=== PATIENT | male | born 1950 | race Caucasian/White ===

== ENCOUNTER 2016-07-31 20:44 | Inpatient (IN) | payer BC, OTHER ==
[2016-07-31 20:57] VITALS: BMI 27.6
--- NOTE | 2016-07-31 22:00 | PDOC ---
History of Present Illness - General Chief Complaint: Respiratory Stated Complaint: COUGH Time Seen by Provider: 07/31/16 21:21 History Source: Patient Exam Limitations: No Limitations - History of Present Illness Initial Comments: 07/31/16 21:59 Chief complaint: Productive worsening cough 2 weeks with shortness of breath when coughing and with exertion History of present illness: Patient is a 66-year-old male with a history of non- insulin-dependent diabetes, hypertension, hyperlipidemia, and renal calculi here today complaining of a productive cough with yellowish phlegm 2 weeks blood-tinged times last 4 days with shortness of breath with exertion and wheezing intermittently. Patient also reports left lateral chest discomfort when coughing. Patient denies any vomiting or diarrhea. She denies any recent travel or any sick contacts. Patient denies any nasal congestion or sore throat. He reports feeling slightly nauseous when eating for the last 2 weeks and when lying down and coughing. Denies any night sweats or contact with anyone with TB. Patient is unsure whether or not he has lost weight thinks he might of lost, he does not have a scale. Denies ever having BCG vaccine was born in this country Social HX: does not drink, 56 yr 1 pkg daily smokers PMHX: He reports being PPD +1979 when in the [employer] he does not remember ever having INH or B6 treatment he denies ever having another PPD. History of ztd-wcpsjfn-wrswimeor diabetes, hypertension, hyperlipidemia Surgical HX: rt. knee 07/31/16 23:12 07/31/16 23:20 07/31/16 23:21 07/31/16 23:25 Timing/Duration: getting worse (for 2 weeks ) Severity: moderate (left lateral chest pain when coughing ) Associated Symptoms: reports: chest pain (left lateral when coughing ), cough ( yellowish phelgm x 2 weeks ), shortness of breath (intermittently with wheeze) Past History - Past Medical History Allergies/Adverse Reactions: Allergies Allergy/AdvReac Type Severity Reaction Status Date / Time No Known Allergies Allergy Verified 07/31/16 20:54 Home Medications: Ambulatory Orders Atorvastatin Ca [Lipitor] 20 mg PO HS #30 tablet 12/27/14 Metformin HCl 500 mg PO BID #60 tablet 12/27/14 Losartan Potassium 50 mg PO ASDIR 07/31/16 Sitagliptin Phosphate [Januvia -] 100 mg PO ONCE 07/31/16 Diabetes: Yes HTN: Yes Hypercholesterolemia: Yes Kidney Stones: Yes Suicide Attempt (Hx): No - Psycho/Social/Smoking Cessation Hx Anxiety: No Suicidal Ideation: No Smoking History: Current every day smoker Have you smoked in the past 12 months: Yes Number of Cigarettes Smoked Daily: 20 Information on smoking cessation initiated: Yes 'Breaking Loose' booklet given: 07/31/16 Hx Alcohol Use: No Drug/Substance Use Hx: No Substance Use Type: None Review of Systems - Review of Systems Able to Perform ROS?: Yes Constitutional: No: Symptoms Reported HEENTM: No: Symptoms Reported Respiratory: Yes: SOB with Exertion, Wheezing, Productive cough (yellowish X 2 weeks ) Cardiac (ROS): Yes: Chest Pain (left lateral chest when coughing ) ABD/GI: No: Symptoms Reported : No: Symptoms Reported Musculoskeletal: No: Symptoms Reported Integumentary: No: Symptoms Reported Neurological: No: Symptoms reported *Physical Exam - Vital Signs Last Vital Signs Temp Pulse Resp BP Pulse Ox 97.9 F 98 H 18 151/84 99 07/31/16 20:54 07/31/16 20:54 07/31/16 20:54 07/31/16 20:54 07/31/16 20:54 - Physical Exam General Appearance: Yes: Appropriately Dressed HEENT: positive: Normal ENT Inspection Neck: negative: Lymphadenopathy (R), Lymphadenopathy (L) Respiratory/Chest: positive: Chest Tender (left lateral chest with cough ), Decreased Breath Sounds (b/l diffuse), Other (reassessment after 2nd duoneb rt. lung sounds improved CTA, left lower lung at base CTA, left mid to upper lobe decreased breath sounds). negative: Lungs Clear, Respiratory Distress, Accessory Muscle Use, Labored Respiration, Paradoxal Breathing, Crackles, Rales , Rhonchi, Stridor, Wheezing Cardiovascular: positive: Regular Rhythm, Regular Rate, S1, S2 Integumentary: positive: Normal Color Neurologic: positive: Alert, Normal Response, Responsive ED Treatment Course - LABORATORY CBC & Chemistry Diagram: 08/01/16 07:30 08/01/16 07:30 Medical Decision Making - Medical Decision Making 07/31/16 22:00 Patient is a 66-year-old male with a history of ayp-lmtorab-wlrjzifae diabetes, hypertension, hyperlipidemia, and renal calculi here today complaining of a productive cough with yellowish phlegm 2 weeks with shortness of breath with exertion and wheezing intermittently. Patient also reports left lateral chest discomfort when coughing. Patient denies any vomiting or diarrhea. He denies any recent travel or any sick contacts. Patient denies any nasal congestion or sore throat. He reports feeling slightly nauseous when eating for the last 2 weeks and when lying down and coughing. Denies any night sweats or contact with anyone with TB. Patient is unsure whether or not he has lost weight thinks he might of lost, he does not have a scale. questionable asthmatic bronchitis infiltrate left upper lobe Plan: DuoNeb 2 predisone 60 mg po now X-ray chest PA and lateral left upper lobe infiltrate no abnormality noted on Chest Xray 06/18/19 Chart nurse Ney and ELECTROTYPE MOLDER Dorinda Larson aware pt. to be transferred to main ED to be admitted to hospitalist, pt. is aware 07/31/16 22:55 07/31/16 23:21 08/01/16 23:38 *DC/Admit/Observation/Transfer Diagnosis at time of Disposition: Pneumonia involving left lung Qualifiers: Pneumonia type: due to unspecified organism Lung location: upper lobe of lung Qualified Code(s): J18.1 - Lobar pneumonia, unspecified organism - Referrals
[2016-07-31] MEDS ORDERED: predniSONE 20 MG TABLET (UD) PO ONE (22:01)
[2016-07-31] MEDS: ALBUTEROL SO4 2.5/IPRATROPIUM 0.5 INH SOL 3 ML VIAL.NEB. NEB SCH ×2 (22:08→22:29)
[2016-07-31] MEDS ORDERED: predniSONE 20 MG TABLET (UD) ONE (22:22)
[2016-07-31] MEDS ORDERED: ALBUTEROL SO4 2.5/IPRATROPIUM 0.5 INH SOL 3 ML VIAL.NEB. NEB ONE (22:25)
--- NOTE | 2016-08-01 00:04 | PDOC ---
*Physical Exam - Vital Signs Last Vital Signs Temp Pulse Resp BP Pulse Ox 97.9 F 98 H 18 151/84 99 07/31/16 20:54 07/31/16 20:54 07/31/16 20:54 07/31/16 20:54 07/31/16 20:54 - Physical Exam Comments: 08/01/16 00:01 Sign-out received from fast track provider Debbi. Pt interviewed and examined. Ancillary studies reviewed. 66 yo M with hx of NIDDM, HLD, HTN, and renal stones presented to [facility] with productive cough 2 weeks with SOB and intermittent wheezing. Large left upper lobe infiltrate seen on CXR. Patient was transferred to main ED for admission to hospital. ED Treatment Course - LABORATORY CBC & Chemistry Diagram: 08/01/16 00:40 08/01/16 00:40 - Medications Given in the ED: ED Medications Discontinued Medications Generic Name Dose Route Start Last Admin Trade Name Freq PRN Reason Stop Dose Admin Albuterol/Ipratropium 1 amp 07/31/16 22:00 07/31/16 22:29 Duoneb - NEB 07/31/16 22:16 1 amp Q15M YARED Administration Prednisone 60 mg 07/31/16 22:01 07/31/16 22:29 Deltasone - PO 07/31/16 22:02 60 mg ONCE ONE Administration *DC/Admit/Observation/Transfer Diagnosis at time of Disposition: Pneumonia involving left lung Qualifiers: Pneumonia type: due to unspecified organism Lung location: upper lobe of lung Qualified Code(s): J18.1 - Lobar pneumonia, unspecified organism - Discharge Dispostion Admit: Yes - Referrals Referrals: Milady Apple MD [Primary Care Provider] - - Patient Instructions - Post Discharge Activity
[2016-08-01 00:53] LABS: BASOPHIL 0.4 % (0-2.0); EOSINOPHIL 0.3 % (0-4.5); MCH 29.6 pg (25.7-33.7); MCHC 33.5 g/dl (32.0-35.9); MEAN CELL VOLUME 88.2 fl (80-96); MEAN PLT VOLUME 7.9 fl (7.5-11.1); NEUTROPHILS 87.1 % (42.8-82.8); PLATELET COUNT 225 K/MM3 (134-434); RDW 13.3 % (11.9-15.9); WHITE BLOOD COUNT 11.1 K/mm3 (4.0-10.0)
[2016-08-01 01:05] LABS: INR 1.31 (0.82-1.09); PROTHROMBIN TIME (PATIENT) 14.5 SEC (9.98-11.88)
[2016-08-01 01:16] LABS: ALBUMIN 3.3 g/dl (3.4-5.0); ANION GAP 12 (8-16); BILIRUBIN,TOTAL 0.7 mg/dL (0.2-1.0); CALCIUM 8.9 mg/dL (8.5-10.1); CO2 28 mmol/L (21-32); CREATININE 0.9 mg/dL (0.7-1.3); GLUCOSE,RANDOM 171 mg/dL (74-106); SGOT/AST 14 U/L (15-37); SGPT/ALT 15 U/L (12-78); TOT PROT 6.7 g/dl (6.4-8.2)
[2016-08-01 01:19] LABS: ALK PHOS 72 U/L (45-117); TROPONIN I < 0.02 ng/ml (0.00-0.05)
[2016-08-01] MEDS ORDERED: AZITHROMYCIN IVPB 500 MG in DEXTROSE 5%-WATER - 250 ML IVPB ONE (01:21)
[2016-08-01] MEDS ORDERED: cefTRIAXone 1 GM/50 ML BAG (PRE-DOCKED) IVPB ONE (01:21)
[2016-08-01] MEDS ORDERED: AZITHROMYCIN IVPB 250 ML IVPB ONE (01:27)
[2016-08-01] MEDS ORDERED: cefTRIAXone SODIUM 1 GM VIAL ONE (01:28)
[2016-08-01 01:31] LABS: URINE APPEARANCE CLEAR; URINE BILIRUBIN NEGATIVE (NEGATIVE); URINE BLOOD NEGATIVE (NEGATIVE); URINE COLOR YELLOW; URINE GLUCOSE (UA) NEGATIVE (NEGATIVE); URINE KETONE 1+ (NEGATIVE); URINE LEUK ESTERASE NEGATIVE (NEGATIVE); URINE NITRITE NEGATIVE (NEGATIVE); URINE UROBILINOGEN 2.0 E.U/dl E.U./dl (0.2-1.0)
[2016-08-01 01:36] LABS: URINE PROTEIN 1+ (NEGATIVE)
[2016-08-01 01:37] LABS: URINE BACTERIA RARE /hpf (NONE SEEN); URINE MUCUS RARE; URINE RBC 2 /hpf (0-3); URINE WBC 1 /hpf (3-5)
--- NOTE | 2016-08-01 02:08 | PN ---
<Didi Burnham - Last Filed: 08/01/16 04:29> Teaching Attending Note Name of Resident: Cassidy Hernández Problem List - Problems (1) Mass of upper lobe of left lung Code(s): R91.8 - OTHER NONSPECIFIC ABNORMAL FINDING OF LUNG FIELD (2) Pneumonia involving left lung Code(s): J18.9 - PNEUMONIA, UNSPECIFIED ORGANISM Qualifiers: Pneumonia type: due to unspecified organism Lung location: upper lobe of lung Qualified Code(s): J18.1 - Lobar pneumonia, unspecified organism (3) Diabetes Code(s): E11.9 - TYPE 2 DIABETES MELLITUS WITHOUT COMPLICATIONS <Lolis Bean - Last Filed: 08/01/16 04:40> Teaching Attending Note ATTENDING PHYSICIAN STATEMENT I saw and evaluated the patient. I reviewed the resident's note and discussed the case with the resident. I agree with the resident's findings and plan as documented. SUBJECTIVE: 66 yo M who presented to the ED with complains of productive cough with yellow sputum and blood tinged phlegm for the past 2 weeks associated with wheezing, dyspnea on exertion and pleuritic chest pain. Patient also complains of anorexia , nausea and unintentional weight loss. Patient history significant for chronic tobacco use since the age of 10. He denies any recent sick contacts, recent travel, night sweats or contact with anyone with TB. Patient also reports unexplained weight loss within the past month. PMHx: diabetes, hypertension, hyperlipidemia, and renal calculi PSHx: Jaw surgery and R knee surgery Social Hx: Tobacco smoker since the age of 10, denies alcohol or drug use. OBJECTIVE: Last Vital Signs Temp Pulse Resp BP Pulse Ox 97.9 F 98 H 18 151/84 99 07/31/16 20:54 07/31/16 20:54 07/31/16 20:54 07/31/16 20:54 07/31/16 20:54 GENERAL: Awake, alert, and fully oriented, in no acute distress HEENT: + R neck surgical scar. Atraumatic. PERRLA, EOMI. Moist mucosa. No JVD LUNGS: + Slight wheezing at L lower lobe otherwise clear. No distress, speaks full sentences. HEART: Regular rate and rhythm, normal S1 and S2, no murmurs, rubs or gallops, peripheral pulses normal and equal bilaterally. ABDOMEN: Soft, nontender, normoactive bowel sounds. No guarding, no rebound. No masses EXTREMITIES: Normal inspection, Normal range of motion, no edema. No clubbing or cyanosis. NEUROLOGICAL: Cranial nerves II through XII grossly intact. Normal speech, gait deferred. no focal sensorimotor deficits SKIN: Warm, Dry, normal turgor, no rashes or lesions noted. CBCD WBC 11.1 K/mm3 (4.0-10.0) H 08/01/16 00:40 RBC 4.69 M/mm3 (4.00-5.60) D 08/01/16 00:40 Hgb 13.9 GM/dL (11.7-16.9) D 08/01/16 00:40 Hct 41.4 % (35.4-49) D 08/01/16 00:40 MCV 88.2 fl (80-96) 08/01/16 00:40 MCHC 33.5 g/dl (32.0-35.9) 08/01/16 00:40 RDW 13.3 % (11.9-15.9) 08/01/16 00:40 Plt Count 225 K/MM3 (134-434) D 08/01/16 00:40 MPV 7.9 fl (7.5-11.1) D 08/01/16 00:40 CMP Sodium 141 mmol/L (136-145) 08/01/16 00:40 Potassium 4.2 mmol/L (3.5-5.1) 08/01/16 00:40 Chloride 101 mmol/L (98-107) 08/01/16 00:40 Carbon Dioxide 28 mmol/L (21-32) 08/01/16 00:40 Anion Gap 12 (8-16) 08/01/16 00:40 BUN 12 mg/dL (7-18) 08/01/16 00:40 Creatinine 0.9 mg/dL (0.7-1.3) 08/01/16 00:40 Creat Clearance w eGFR > 60 (>60) 08/01/16 00:40 Calcium 8.9 mg/dL (8.5-10.1) 08/01/16 00:40 Total Bilirubin 0.7 mg/dL (0.2-1.0) D 08/01/16 00:40 AST 14 U/L (15-37) L D 08/01/16 00:40 ALT 15 U/L (12-78) 08/01/16 00:40 Alkaline Phosphatase 72 U/L (45-117) D 08/01/16 00:40 Total Protein 6.7 g/dl (6.4-8.2) 08/01/16 00:40 Albumin 3.3 g/dl (3.4-5.0) L 08/01/16 00:40 Imaging: Chest Xray Impression- Heart size is normal. Dense left upper lobe infiltrate likely represents lobar pneumonia. No pleural effusion. Bones and soft tissues are normal. ASSESSMENT AND PLAN: Patient admitted under Observation 1.) PNA Ceftriaxone 1 g daily and Azithromycin 500 mg daily Nebulization Q6 PRN Tylenol PRN for fever Robitussin 10 ml Q6 hrs PRN for cough Ativan 2 mg IV push to be given right before CT of Chest w contrast 2.) Diabetes INSS Fingersticks HS Diabetic Diet 3.) HTN Continue home meds 4.)HLD Continue statin 5.)Tobacco dependence Nicotine patch 14 mg Counseling for risk of dependence and Lung CA Documentation prepared by Lolis Bean, acting as medical chief technician for Didi Burnham MD.
--- NOTE | 2016-08-01 02:17 | HP ---
CHIEF COMPLAINT: Cough, SOB x 2 weeks PCP: Dr. Milady Apple ([phone]) HISTORY OF PRESENT ILLNESS: Patient is a 66-year-old male presented to the ED with the chief complaints of Cough and shortness of breath x 2 weeks. A/c to the patient, he developed productive cough, with yellowish-whitish sputum, blood tinged on/off. Vigorous cough causing rib pain as per the patient. Cough is associated with shortness of breath especially during exertion. Patient also states that he noticed he has lost weight within a period of 2 weeks (didn't weigh himself but noticed his clothes are loose). Has decreased appetite x 2 weeks. Feels nauseous but hasn't vomited. Denies chest pain, palpitation, abdominal pain, headache, dizziness, tingling, night sweats, fever, chills, rigors or sweating. Bowel/Bladder habit normal. Sleep Normal. ER course was notable for: (1) Afebrile, Tachycardic 100bpm, WBC 11.1 (2) CXR- Large left sided infiltrate (official read pending) (3) Duoneb, IV Ceftriaxone, IV Azithromycin, Prednisone 60mg Recent Travel: None PAST MEDICAL HISTORY: Diabetes Mellitus, Hypertension, Hyperlipidemia, Renal calculi, PPD positive in 1979 (never took Isoniazid +B6); Right knee surgery, Dental surgery PAST SURGICAL HISTORY: As mentioned above Social History: Smokin pack/day since age 10 years Alcohol: Denies Drugs: Denies Family History: Unknown Allergies No Known Allergies Allergy (Verified 07/31/16 20:54) HOME MEDICATIONS: Home Medications Medication Instructions Recorded Atorvastatin Ca [Lipitor] 20 mg PO HS #30 tablet 12/27/14 Metformin HCl 500 mg PO BID #60 tablet 12/27/14 Losartan Potassium 50 mg PO ASDIR 07/31/16 Sitagliptin Phosphate [Januvia -] 100 mg PO ONCE 07/31/16 REVIEW OF SYSTEMS CONSTITUTIONAL: Present: Lost weight within 2 weeks, loss of appetite Absent: fever, chills, diaphoresis, generalized weakness, malaise, HEENT: Absent: rhinorrhea, nasal congestion, throat pain, throat swelling, difficulty swallowing, mouth swelling, ear pain, eye pain, visual changes CARDIOVASCULAR: Absent: chest pain, syncope, palpitations, irregular heart rate, lightheadedness , peripheral edema RESPIRATORY: Present: cough, shortness of breath, dyspnea with exertion Absent: orthopnea, wheezing, stridor, hemoptysis GASTROINTESTINAL: Absent: abdominal pain, abdominal distension, nausea, vomiting, diarrhea, constipation, melena, hematochezia GENITOURINARY: Absent: dysuria, frequency, urgency, hesitancy, hematuria, flank pain, genital pain MUSCULOSKELETAL: Absent: myalgia, arthralgia, joint swelling, back pain, neck pain SKIN: Absent: rash, itching, pallor HEMATOLOGIC/IMMUNOLOGIC: Absent: easy bleeding, easy bruising, lymphadenopathy, frequent infections ENDOCRINE: Absent: unexplained weight gain, unexplained weight loss, heat intolerance, cold intolerance NEUROLOGIC: Absent: headache, focal weakness or paresthesias, dizziness, unsteady gait, seizure, mental status changes, bladder or bowel incontinence PSYCHIATRIC: Absent: anxiety, depression, suicidal or homicidal ideation, hallucinations. PHYSICAL EXAMINATION Vital Signs - 24 hr 07/31/16 20:54 Temperature 97.9 F Pulse Rate 98 H Respiratory 18 Rate Blood Pressure 151/84 O2 Sat by Pulse 99 Oximetry (%) GENERAL: Patient is moderately built, Awake, alert, and fully oriented, in no acute distress. HEAD: Normal with no signs of trauma. EYES: EOM intact, no pallor or icterus. EARS, NOSE, THROAT: Ears normal, nares patent, oropharynx clear without exudates. Moist mucous membranes. NECK: Surgical scar vira in submandibular area, Supple. LUNGS:Breath sounds decreased on the left>right. No wheeze or crackles. HEART: Regular rate and rhythm, normal S1 and S2 without murmur, rub or gallop. ABDOMEN: Soft, nontender, not distended, normoactive bowel sounds, no guarding, no rebound, no masses. No hepatomegaly or splenomegaly. MUSCULOSKELETAL: Normal range of motion at all joints. No bony deformities or tenderness. No CVA tenderness. UPPER EXTREMITIES: 2+ pulses, warm, well-perfused. No cyanosis. No clubbing. No peripheral edema. LOWER EXTREMITIES: 2+ pulses, warm, well-perfused. No calf tenderness. No peripheral edema. NEUROLOGICAL: Cranial nerves II-XII intact. Normal speech. Normal gait. PSYCHIATRIC: Cooperative. Good eye contact. Appropriate mood and affect. SKIN: Warm, dry, normal turgor, no rashes or lesions noted, normal capillary refill. Laboratory Results - last 24 hr 08/01/16 08/01/16 08/01/16 00:40 00:40 00:40 WBC 11.1 H RBC 4.69 D Hgb 13.9 D Hct 41.4 D MCV 88.2 MCHC 33.5 RDW 13.3 Plt Count 225 D MPV 7.9 D Neutrophils % 87.1 H Lymphocytes % 6.8 L D Monocytes % 5.4 Eosinophils % 0.3 Basophils % 0.4 INR 1.31 H PTT (Actin FS) 32.0 Sodium 141 Potassium 4.2 Chloride 101 Carbon Dioxide 28 Anion Gap 12 BUN 12 Creatinine 0.9 Creat Clearance w eGFR > 60 Random Glucose 171 H D Lactic Acid Calcium 8.9 Total Bilirubin 0.7 D AST 14 L D ALT 15 Alkaline Phosphatase 72 D Creatine Kinase 87 Troponin I < 0.02 Total Protein 6.7 Albumin 3.3 L Urine Color Urine Appearance Urine pH Ur Specific [place] Urine Protein Urine Glucose (UA) Urine Ketones Urine Blood Urine Nitrite Urine Bilirubin Urine Urobilinogen Ur Leukocyte Esterase Urine RBC Urine WBC Urine Bacteria Urine Mucus Blood Type Antibody Screen 08/01/16 08/01/16 08/01/16 00:40 00:40 01:14 WBC RBC Hgb Hct MCV MCHC RDW Plt Count MPV Neutrophils % Lymphocytes % Monocytes % Eosinophils % Basophils % INR PTT (Actin FS) Sodium Potassium Chloride Carbon Dioxide Anion Gap BUN Creatinine Creat Clearance w eGFR Random Glucose Lactic Acid 1.558 Calcium Total Bilirubin AST ALT Alkaline Phosphatase Creatine Kinase Troponin I Total Protein Albumin Urine Color Yellow Urine Appearance Clear Urine pH 6.0 Ur Specific [place] 1.018 Urine Protein 1+ H Urine Glucose (UA) Negative Urine Ketones 1+ H Urine Blood Negative Urine Nitrite Negative Urine Bilirubin Negative Urine Urobilinogen 2.0 e.u/dl Ur Leukocyte Esterase Negative Urine RBC 2 Urine WBC 1 Urine Bacteria Rare Urine Mucus Rare Blood Type A POSITIVE Antibody Screen Negative ASSESSMENT/PLAN: Patient is a 66-year-old male with significant past medical history of Diabetes Mellitus, Hypertension, Hyperlipidemia, Renal calculi, PPD positive in 1979 ( never took Isoniazid +B6); Right knee surgery, Dental surgery presented to the ED with the chief complaints of Cough and shortness of breath x 2 weeks. # Left lung mass vs large infiltrate- CURB 65 score-1; PSI (although we didn't have all the labs, rough calculation- low risk hence can be discharged or to place on observation) Patient presented with productive cough, yellowish-whitish sputum, blood tinged, SOB +, unintentional weight loss in 2 weeks; Smoking 1ppd x 56 years On arrival, Afebrile, Tachycardic 100bpm, WBC 11.1 CXR- Left lung mass vs large infiltrate (official report pending) In the ED, patient received Duoneb, IV Ceftriaxone, IV Azithromycin, Prednisone 60mg Placed on observation CT Chest with IV contrast ordered for 8am to rule out malignancy; patient mentioned he needs something to calm him down before going for the scan. Treating like Community acquired pneumonia with IV Ceftriaxone and Azithromycin until we get the CT scan report Smoking cessation counseling # Diabetes Mellitus patient is usually non compliant with medication HbA1c pending Diabetic diet Finger stick glucose monitoring Insulin sliding scale # Current smoker Has been smoking for > 50 years, smoking cessation counseling Nicotine patch # Hypertension Continue Losartan 50mg Daily Sodium controlled diet and exercise counseling # Hyperlipidemia Continue Atorvastatin 20mg Daily # Renal Calculi Not in flank pain at this time # FEN Gentle hydration-as patient is going for CT chest with IV contrast to reduce the chances of TEAGAN Electrolytes to be repeated Diabetic diet # Prophylaxis For GI: Not indicated For DVT: Patient ambulating; placed for observation only # Code Status: Full Code # Dispo: Admitted in Med-Surg. Duration of stay likely 1-2 days Illness, Investigation and Plan of care explained to the patient. He verbalized understanding. Case seen and discussed with Dr. Burnham. Visit type - Emergency Visit Emergency Visit: Yes ED Registration Date: 08/01/16 Care time: The patient presented to the Emergency Department on the above date and was hospitalized for further evaluation of their emergent condition. - New Patient This patient is new to me today: Yes Date on this admission: 08/01/16 - Critical Care Critical Care patient: No
[2016-08-01] MEDS: SODIUM CHLORIDE 1,000 ML IV SCH ×2 (05:05→17:00)
[2016-08-01] MEDS: INSULIN SLIDING SCALE (NOVOLOG) 1 VIAL SQ SCH ×4 (06:22→23:30)
[2016-08-01] MEDS: ALBUTEROL SO4 2.5/IPRATROPIUM 0.5 INH SOL 3 ML VIAL.NEB. NEB SCH ×4 (07:23→23:25)
[2016-08-01 08:20] LABS: BASOPHIL 0.7 % (0-2.0); MCH 29.4 pg (25.7-33.7); MCHC 33.4 g/dl (32.0-35.9); NEUTROPHILS 83.7 % (42.8-82.8); PLATELET COUNT 246 K/MM3 (134-434); RDW 13.4 % (11.9-15.9); WHITE BLOOD COUNT 9.1 K/mm3 (4.0-10.0)
[2016-08-01] MEDS: NICOTINE 14 MG/24 HOURS TOPICAL PATCH TD SCH (09:34)
[2016-08-01] MEDS: AZITHROMYCIN IVPB 500 MG/250 ML D5W PRE-DOCKED IVPB SCH (09:34)
[2016-08-01] MEDS: cefTRIAXone 1 GM/50 ML BAG (PRE-DOCKED) IVPB SCH (09:34)
--- NOTE | 2016-08-01 09:34 | EKG ---
Test Reason : Blood Pressure : / mmHG Vent. Rate : 108 BPM Atrial Rate : 108 BPM P-R Int : 150 ms QRS Dur : 092 ms QT Int : 348 ms P-R-T Axes : 061 025 057 degrees QTc Int : 466 ms SINUS TACHYCARDIA NONSPECIFIC ST ABNORMALITY NO PREVIOUS ECGS AVAILABLE Confirmed by SAM MCDONALD MD ([id number]) on 08/01/2016 9:33:50 AM Referred By: Confirmed By:SAM MCDONALD MD
[2016-08-01] MEDS: LOSARTAN POTASSIUM 50 MG TABLET (FP) PO SCH (09:35)
[2016-08-01 09:44] LABS: CHOLESTEROL 137 mg/dL (50-200); LDL CHOLESTEROL (ONLY SJRH) 91 mg/dL (5-100)
[2016-08-01] MEDS ORDERED: INSULIN (NOVOLOG) ASPART 100 UNITS/ML 10ML VIAL ONE ×2 (10:53→23:28)
[2016-08-01] MEDS ORDERED: LORAZEPAM CARPU-JECT 2 MG/ML DISP.SYRIN IM ONE (11:30)
--- NOTE | 2016-08-01 12:54 | PN ---
<ValerieKatie lincoln - Last Filed: 08/01/16 13:07> Physical Exam: SUBJECTIVE: Patient seen and examined admits to cough and shortness of breath that has improved. White/yellow sputum production with specks of blood intermittent. Afebrile. OBJECTIVE: Vital Signs Period Temp Pulse Resp BP Sys/Avalos Pulse Ox Last 24 Hr 97.2 F-98.7 F 89-110 17-20 130-158/76-82 96-98 GENERAL: The patient is awake, alert, and fully oriented, in no acute distress. HEAD: Normal with no signs of trauma. EYES: PERRL, extraocular movements intact, sclera anicteric, conjunctiva clear. No ptosis. ENT: Ears normal, nares patent, oropharynx clear without exudates, moist mucous membranes. NECK: Trachea midline, full range of motion, supple. LUNGS: Breath sounds decreased left upper lobe, clear to auscultation bilaterally, no wheezes, no crackles, no accessory muscle use. HEART: tachycardic and rhythm, S1, S2 without murmur, rub or gallop. ABDOMEN: Soft, nontender, nondistended, normoactive bowel sounds, no guarding, no rebound, no hepatosplenomegaly, no masses. EXTREMITIES: 2+ pulses, warm, well-perfused, no edema. NEUROLOGICAL: Cranial nerves II through XII grossly intact. Normal speech, gait not observed. PSYCH: Normal mood, normal affect. SKIN: Warm, dry, normal turgor, no rashes or lesions noted Laboratory Results - last 24 hr 08/01/16 08/01/16 08/01/16 03:30 05:45 07:30 WBC 9.1 RBC 4.76 Hgb 14.0 Hct 41.9 MCV 88.0 MCHC 33.4 RDW 13.4 Plt Count 246 MPV 8.0 Neutrophils % 83.7 H Lymphocytes % 11.0 D Monocytes % 4.6 Eosinophils % 0.0 D Basophils % 0.7 POC Glucometer 219 Lactic Acid 1.428 Triglycerides Cholesterol Total LDL Cholesterol HDL Cholesterol 08/01/16 08/01/16 07:30 10:47 WBC RBC Hgb Hct MCV MCHC RDW Plt Count MPV Neutrophils % Lymphocytes % Monocytes % Eosinophils % Basophils % POC Glucometer 291 Lactic Acid Triglycerides 80 Cholesterol 137 Total LDL Cholesterol 91 HDL Cholesterol 39 L Active Medications Generic Name Dose Route Start Last Admin Trade Name Annabel PRN Reason Stop Dose Admin Albuterol/Ipratropium 1 amp 08/01/16 06:00 08/01/16 11:25 Duoneb - NEB 1 amp QIDR YARED Administration Atorvastatin Calcium 20 mg 08/01/16 22:00 Lipitor - PO HS YARED Azithromycin 500 mg 08/01/16 10:00 08/01/16 09:34 Zithromax 500mg Ivpb (Pre-Docked) IVPB 500 mg DAILY YARED Administration Ceftriaxone Sodium 1 gm 08/01/16 10:00 08/01/16 09:34 Rocephin 1gm Ivpb (Pre-Docked) IVPB 1 gm DAILY YARED Administration Sodium Chloride 1,000 mls @ 83 mls/hr 08/01/16 03:45 08/01/16 05:05 Normal Saline - IV 83 mls/hr ASDIR YARED Administration Insulin Aspart 1 vial 08/01/16 07:00 08/01/16 10:54 Novolog Vial Sliding Scale - SQ 6 units ACHS YARED Administration Protocol Losartan Potassium 50 mg 08/01/16 10:00 08/01/16 09:35 Cozaar - PO 50 mg DAILY YARED Administration Nicotine 14 mg 08/01/16 10:00 08/01/16 09:34 Nicoderm Patch - TD 14 mg DAILY YARED Administration ASSESSMENT/PLAN: This is a a 66 year old male with a PMHx of Diabetes Mellitus II, Hypertension, Hyperlipidemia, Renal calculi, PPD positive in 1979 ( 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 Does admit to some weight loss. 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 CXR showing large left sided infiltrate. admitted for pneumonia, r/o underlying lung mass. 1. Community acquired pneumonia; r/o lung mass -leuckocytosis; CXR lft infiltrate -f/u blood cultures; -IV ceftriaxone; IV azithromycin -duoneb 1 AMP QIDR -Chest CT pending 2. Hypertension: -losartan 50mg po daily 3. Diabetes mellitus II: -insulin SS ACHS -BGM 4. Hyperlipidemia: -lipitor 20mg po HS FEN: Fluid:NS 83mls;hr Electrolytes: wnl Diet: low sodium VTE: prophylaxis: lovenox Disposition: IV antibiotic/CT pending Problem List - Problems (1) Pneumonia involving left lung Code(s): J18.9 - PNEUMONIA, UNSPECIFIED ORGANISM Qualifiers: Pneumonia type: due to unspecified organism Lung location: upper lobe of lung Qualified Code(s): J18.1 - Lobar pneumonia, unspecified organism (2) Diabetes Code(s): E11.9 - TYPE 2 DIABETES MELLITUS WITHOUT COMPLICATIONS Qualifiers: Diabetes mellitus type: type 2 (3) Hypertension Code(s): I10 - ESSENTIAL (PRIMARY) HYPERTENSION (4) Hyperlipidemia Code(s): E78.5 - HYPERLIPIDEMIA, UNSPECIFIED (5) Tobacco abuse Code(s): Z72.0 - TOBACCO USE Visit type - Emergency Visit Emergency Visit: Yes ED Registration Date: 08/01/16 Care time: The patient presented to the Emergency Department on the above date and was hospitalized for further evaluation of their emergent condition. - New Patient This patient is new to me today: Yes Date on this admission: 08/01/16 - Critical Care Critical Care patient: No <Donny Mayo - Last Filed: 08/01/16 18:56> Physical Exam: ATTENDING PHYSICIAN STATEMENT I saw and evaluated the patient. I reviewed the resident's note and discussed the case with the resident. I agree with the resident's findings and plan as documented. SUBJECTIVE: seen and evaluated at the bedside; OBJECTIVE: coughing occasionally but in no distress; slightly decrease breath sounds MADALYN area ASSESSMENT AND PLAN: 66 year old man with Diabetes Mellitus, Hypertension admitted for community acquired pneumonia -presented with MADALYN consolidation with productive cough and elevated WBC -cont ceftriaxone/azithromycin -follow up cultures -follow up CT chest te ensure that pt does not have lung mass adjacent to consolidation
[2016-08-01 13:36] LABS: CREATININE 0.8 mg/dl (0.6-1.3); GLUCOSE,RANDOM 186 mg/dl (74-106)
[2016-08-01 13:37] LABS: ALBUMIN 3.3 g/dl (3.5-5.0); ALK PHOS 72 U/L (32-92); ANION GAP 10 (8-16); BILIRUBIN,TOTAL 0.7 mg/dl (0.2-1.0); CALCIUM 9.5 mg/dl (8.4-10.2); CO2 24 mmol/L (22-28); SGOT/AST 10 U/L (10-42); SGPT/ALT 14 U/L (10-40); TOT PROT 6.7 g/dl (6.4-8.3)
[2016-08-01] MEDS ORDERED: LORAZEPAM CARPU-JECT 2 MG/ML DISP.SYRIN IVPUSH ONE (15:44)
[2016-08-01] MEDS ORDERED: LORAZEPAM CARPU-JECT 2 MG/ML DISP.SYRIN ONE (19:02)
[2016-08-01] MEDS: ATORVASTATIN CA 20 MG TABLET (FP) PO SCH (22:34)
[2016-08-02] MEDS ORDERED: guaiFENesin 200 MG/10 ML 10 ML UNIT-DOSE CUPS PO PRN (02:45)
[2016-08-02] MEDS ORDERED: ALBUTEROL SO4 0.083% IH SOL 2.5 MG/3 ML VIAL.NEB. NEB PRN (04:35)
--- NOTE | 2016-08-02 04:37 | HOSP ---
Subjective - Review of Symptoms Subjective: Was paged by the nurse and informed that patient has been continuously coughing. Immediately went to assess the patient. A/c to the patient, his cough is continuous, with productive of sputum, blood tinged sputum. Denies chest pain, sob, palpitation, fever, chills, rigors, sweating. Physical examination: Vitals: BP-157/91; HR-105bpm; Temp- 98.5F; GENERAL: Patient is moderately built, Awake, alert, and fully oriented, in no acute distress. HEAD: Normal with no signs of trauma. EYES: EOM intact, no pallor or icterus. EARS, NOSE, THROAT: Ears normal, nares patent, oropharynx clear without exudates. Moist mucous membranes. NECK: Surgical scar vira in submandibular area, Supple. LUNGS:Breath sounds decreased on the left>right. Diffusely wheezing + HEART: Regular rate and rhythm, normal S1 and S2 without murmur, rub or gallop. ABDOMEN: Soft, nontender, not distended, normoactive bowel sounds, no guarding, no rebound, no masses. No hepatomegaly or splenomegaly. MUSCULOSKELETAL: Normal range of motion at all joints. No bony deformities or tenderness. No CVA tenderness. UPPER EXTREMITIES: 2+ pulses, warm, well-perfused. No cyanosis. No clubbing. No peripheral edema. LOWER EXTREMITIES: 2+ pulses, warm, well-perfused. No calf tenderness. No peripheral edema. NEUROLOGICAL: Cranial nerves II-XII intact. Normal speech. Normal gait. PSYCHIATRIC: Cooperative. Good eye contact. Appropriate mood and affect. SKIN: Warm, dry, normal turgor, no rashes or lesions noted, normal capillary refill. A/P Patient is a 66-year-old male with significant past medical history of Diabetes Mellitus, Hypertension, Hyperlipidemia, Renal calculi, PPD positive in 1979 ( never took Isoniazid +B6); Right knee surgery, Dental surgery presented to the ED admitted with the diagnosis of Community acquired Pneumonia 1. Sputum culture 2. Albuterol nebulization with nebs with NS in between. Plan of care explained to the patient. He verbalized understanding. Physical Examination Vital Signs: Vital Signs Temperature 97.9 F 08/01/16 21:00 Pulse Rate 102 H 08/01/16 21:00 Respiratory Rate 18 08/01/16 21:00 Blood Pressure 143/78 08/01/16 21:00 O2 Sat by Pulse Oximetry (%) 96 08/01/16 21:00 Visit type - Emergency Visit Emergency Visit: Yes ED Registration Date: 08/01/16 Care time: The patient presented to the Emergency Department on the above date and was hospitalized for further evaluation of their emergent condition. - New Patient This patient is new to me today: Yes Date on this admission: 08/02/16 - Critical Care Critical Care patient: No
[2016-08-02] MEDS ORDERED: CODEINE SO4 30 MG TABLET PO ONE (04:54)
[2016-08-02] MEDS: ALBUTEROL SO4 2.5/IPRATROPIUM 0.5 INH SOL 3 ML VIAL.NEB. NEB SCH ×4 (05:15→23:46)
[2016-08-02] MEDS: SODIUM CHLORIDE 1,000 ML IV SCH ×3 (06:40→21:42)
[2016-08-02] MEDS: INSULIN SLIDING SCALE (NOVOLOG) 1 VIAL SQ SCH ×4 (06:48→21:42)
[2016-08-02 07:42] LABS: BASOPHIL 0.4 % (0-2.0); EOSINOPHIL 0.6 % (0-4.5); MCH 30.1 pg (25.7-33.7); MCHC 34.1 g/dl (32.0-35.9); MEAN CELL VOLUME 88.3 fl (80-96); MEAN PLT VOLUME 7.9 fl (7.5-11.1); NEUTROPHILS 76.3 % (42.8-82.8); PLATELET COUNT 238 K/MM3 (134-434); RDW 13.5 % (11.9-15.9)
[2016-08-02 09:11] LABS: CALCIUM 8.4 mg/dL (8.5-10.1); CREATININE 0.9 mg/dL (0.7-1.3)
[2016-08-02] MEDS: NICOTINE 14 MG/24 HOURS TOPICAL PATCH TD SCH (09:24)
[2016-08-02] MEDS: AZITHROMYCIN IVPB 500 MG/250 ML D5W PRE-DOCKED IVPB SCH (09:24)
[2016-08-02] MEDS: cefTRIAXone 1 GM/50 ML BAG (PRE-DOCKED) IVPB SCH (09:24)
[2016-08-02] MEDS: LOSARTAN POTASSIUM 50 MG TABLET (FP) PO SCH (09:25)
[2016-08-02] MEDS ORDERED: AZITHROMYCIN IVPB 500 MG in DEXTROSE 5%-WATER - 250 ML IVPB SCH (10:00)
[2016-08-02] MEDS ORDERED: CEFTRIAXONE 1 GM in DEXTROSE 5%-WATER - 50 ML IVPB SCH (10:00)
--- NOTE | 2016-08-02 12:57 | PN ---
Progress Note, Physician - Current Medication List Current Medications: Active Medications Albuterol Sulfate (Ventolin 0.083% Nebulizer Soln -) 1 amp NEB Q4H PRN PRN Reason: SHORT OF BREATH/WHEEZING Albuterol/Ipratropium (Duoneb -) 1 amp NEB QIDR [facility] Last Admin: 08/02/16 11:15 Dose: 1 amp Atorvastatin Calcium (Lipitor -) 20 mg PO HS [facility] Last Admin: 08/01/16 22:34 Dose: 20 mg Azithromycin (Zithromax 500mg Ivpb (Pre-Docked)) 500 mg IVPB DAILY [facility] Last Admin: 08/02/16 09:24 Dose: 500 mg Ceftriaxone Sodium (Rocephin 1gm Ivpb (Pre-Docked)) 1 gm IVPB DAILY [facility] Last Admin: 08/02/16 09:24 Dose: 1 gm Guaifenesin/Codeine Phosphate (Robitussin Ac -) 10 ml PO Q8H PRN PRN Reason: COUGH Sodium Chloride (Normal Saline -) 1,000 mls @ 83 mls/hr IV ASDIR [facility] Last Admin: 08/02/16 06:41 Dose: 83 mls/hr Insulin Aspart (Novolog Vial Sliding Scale -) 1 vial SQ ACHS [facility] PRN Reason: Protocol Last Admin: 08/02/16 11:31 Dose: 4 units Losartan Potassium (Cozaar -) 50 mg PO DAILY [facility] Last Admin: 08/02/16 09:25 Dose: 50 mg Nicotine (Nicoderm Patch -) 14 mg TD DAILY [facility] Last Admin: 08/02/16 09:24 Dose: 14 mg - Objective Vital Signs: Vital Signs Temperature 98.5 F 08/02/16 05:00 Pulse Rate 98 H 08/02/16 11:15 Respiratory Rate 20 08/02/16 05:00 Blood Pressure 148/87 08/02/16 05:00 O2 Sat by Pulse Oximetry (%) 97 08/02/16 11:15 Constitutional: Yes: Well Nourished, No Distress, Calm Eyes: Yes: WNL, Conjunctiva Clear HENT: Yes: WNL, Atraumatic, Normocephalic Neck: Yes: WNL, Supple, Trachea Midline Cardiovascular: Yes: WNL, Regular Rate and Rhythm Respiratory: Yes: Regular, Diminished (mild in breath sounds at MADALYN area ) Gastrointestinal: Yes: WNL, Normal Bowel Sounds Musculoskeletal: Yes: WNL Extremities: Yes: WNL Edema: No Integumentary: Yes: WNL Neurological: Yes: WNL, Alert, Oriented ...Motor Strength: WNL Psychiatric: Yes: WNL Labs: CBC, BMP 08/02/16 06:10 08/02/16 06:10 INR, PTT INR 1.31 (0.82-1.09) H 08/01/16 00:40 Impression/Plan Impression/Plan: 66 year old man with Diabetes Mellitus, Hypertension admitted for community acquired pneumonia -presented with MADALYN consolidation with productive cough and elevated WBC -cont ceftriaxone/azithromycin -follow up cultures -CT chest shows mass with post obstructive pneumonia -follow up pulmonary consult for broch with biopsy Visit type - Emergency Visit Emergency Visit: Yes ED Registration Date: 08/01/16 Care time: The patient presented to the Emergency Department on the above date and was hospitalized for further evaluation of their emergent condition. - New Patient This patient is new to me today: No - Critical Care Critical Care patient: No
--- NOTE | 2016-08-02 14:12 | CON.PULM ---
Consult Consult Specialty:: PULMONARY Referred by:: Dr. Mayo Reason for Consultation:: r/o lung mass - History of Present Illness Chief Complaint: chest pain History of Present Illness: 66yo male with h/o HTN, DM, hyperlipidemia, long time smoker who presents with left sided chest pain, shortness of breath and cough x 2 weeks. Pain worse with lying down. Cough productive of yellow mixed with bloody tinge. Denies any fevers, chills or sweats. Unsure about weight loss but only eats 1 full meal/ day. He is a long time smoker, started at age 10 and smoked an average of 1 PPD. No nausea, vomiting or abdominal pain. CXR showing extensive MADALYN infiltrate , CT chest done which was suspicious for mass. Denies any family history of malignancies. 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 - History Source History Provided By: Patient, Family Member Limitations to Obtaining History: No Limitations - Past Medical History Cardio/Vascular: Yes: HTN, Hyperlipdemia Endocrine: Yes: Diabetes Mellitus - Alcohol/Substance Use Hx Alcohol Use: No - Smoking History Smoking history: Current every day smoker Have you smoked in the past 12 months: Yes Aproximately how many cigarettes per day: 20 Home Medications - Allergies Allergies/Adverse Reactions: Allergies Allergy/AdvReac Type Severity Reaction Status Date / Time No Known Allergies Allergy Verified 07/31/16 20:54 - Home Medications Home Medications: Ambulatory Orders Atorvastatin Ca [Lipitor] 20 mg PO HS #30 tablet 12/27/14 Metformin HCl 500 mg PO BID #60 tablet 12/27/14 Losartan Potassium 50 mg PO ASDIR 07/31/16 Sitagliptin Phosphate [Januvia -] 100 mg PO ONCE 07/31/16 Family Disease History - Family Disease History Other Family History: non-contributory Review of Systems - Review of Systems Constitutional: denies: Chills, Fever Eyes: denies: Recent Change in Vision HENT: denies: Nasal Congestion, Throat Pain Neck: denies: Stiffness, Tenderness Cardiovascular: reports: Chest Pain, Shortness of Breath. denies: Edema, Palpitations Respiratory: reports: Cough, Hemoptysis, SOB. denies: Wheezing Gastrointestinal: denies: Abdominal Pain, Nausea, Vomiting Genitourinary: denies: Dysuria, Hematuria Neurological: denies: Dizziness, Headache Endocrine: reports: Unexplained Weight Loss Physical Exam Vital Sings: Vital Signs Temperature 98.5 F 08/02/16 05:00 Pulse Rate 98 H 08/02/16 11:15 Respiratory Rate 20 08/02/16 05:00 Blood Pressure 148/87 08/02/16 05:00 O2 Sat by Pulse Oximetry (%) 97 08/02/16 11:15 Constitutional: Yes: No Distress, Calm, Poor Hygeine Eyes: Yes: EOM Intact HENT: Yes: Atraumatic, Normocephalic Neck: Yes: Supple, Trachea Midline Cardiovascular: Yes: Regular Rate and Rhythm Respiratory: Yes: Diminished (distant breath sounds). No: Wheezes Gastrointestinal: Yes: Normal Bowel Sounds, Soft. No: Tenderness Edema: No Neurological: Yes: Alert, Oriented Labs: CBC, BMP 08/02/16 06:10 08/02/16 06:10 Imaging - Results Chest X-ray: Report Reviewed, Image Reviewed Cat Scan: Report Reviewed, Image Reviewed (large area of infiltrate vs mass in MADALYN) Problem List - Problems (1) Pneumonia involving left lung Code(s): J18.9 - PNEUMONIA, UNSPECIFIED ORGANISM Qualifiers: Pneumonia type: due to unspecified organism Lung location: upper lobe of lung Qualified Code(s): J18.1 - Lobar pneumonia, unspecified organism (2) Mass of upper lobe of left lung Code(s): R91.8 - OTHER NONSPECIFIC ABNORMAL FINDING OF LUNG FIELD (3) Hyperlipidemia Code(s): E78.5 - HYPERLIPIDEMIA, UNSPECIFIED (4) Hypertension Code(s): I10 - ESSENTIAL (PRIMARY) HYPERTENSION (5) Diabetes Code(s): E11.9 - TYPE 2 DIABETES MELLITUS WITHOUT COMPLICATIONS Qualifiers: Diabetes mellitus type: type 2 (6) Tobacco abuse Code(s): Z72.0 - TOBACCO USE Assessment/Plan Pneumonia r/o Lung Mass with postobstructive pneumonia Long time Smoker HTN DM Hyperlipidemia - continue antibiotics - f/u cultures - will plan for bronchoscopy but unable to schedule at this time, will likely be add on case 08/04 pending OR availability - DVT prophylaxis Thank you for this consult Ed Syed MD
[2016-08-02] MEDS: guaiFENesin/CODEINE 10 ML UNIT-DOSE CUPS PO PRN ×2 (14:33→22:47)
[2016-08-02] MEDS ORDERED: INSULIN (NOVOLOG) ASPART 100 UNITS/ML 10ML VIAL ONE (21:36)
[2016-08-02] MEDS: ATORVASTATIN CA 20 MG TABLET (FP) PO SCH (21:42)
[2016-08-03] MEDS: ALBUTEROL SO4 2.5/IPRATROPIUM 0.5 INH SOL 3 ML VIAL.NEB. NEB SCH ×3 (05:48→19:10)
[2016-08-03] MEDS: INSULIN SLIDING SCALE (NOVOLOG) 1 VIAL SQ SCH ×4 (06:27→22:20)
[2016-08-03] MEDS: SODIUM CHLORIDE 1,000 ML IV SCH (06:27)
[2016-08-03] MEDS ORDERED: ACETAMINOPHEN 325 MG TABLET (FP) PO PRN (09:10)
--- NOTE | 2016-08-03 09:12 | PN ---
Progress Note, Physician - Current Medication List Current Medications: Active Medications Acetaminophen (Tylenol -) 650 mg PO Q6H PRN PRN Reason: FEVER OR PAIN Albuterol Sulfate (Ventolin 0.083% Nebulizer Soln -) 1 amp NEB Q4H PRN PRN Reason: SHORT OF BREATH/WHEEZING Albuterol/Ipratropium (Duoneb -) 1 amp NEB QIDR [facility] Last Admin: 08/03/16 05:48 Dose: 1 amp Atorvastatin Calcium (Lipitor -) 20 mg PO HS [facility] Last Admin: 08/02/16 21:42 Dose: 20 mg Azithromycin (Zithromax 500mg Ivpb (Pre-Docked)) 500 mg IVPB DAILY [facility] Last Admin: 08/02/16 09:24 Dose: 500 mg Ceftriaxone Sodium (Rocephin 1gm Ivpb (Pre-Docked)) 1 gm IVPB DAILY [facility] Last Admin: 08/02/16 09:24 Dose: 1 gm Guaifenesin/Codeine Phosphate (Robitussin Ac -) 10 ml PO Q8H PRN PRN Reason: COUGH Last Admin: 08/02/16 22:47 Dose: 10 ml Sodium Chloride (Normal Saline -) 1,000 mls @ 83 mls/hr IV ASDIR [facility] Last Admin: 08/03/16 06:27 Dose: Not Given Insulin Aspart (Novolog Vial Sliding Scale -) 1 vial SQ ACHS [facility] PRN Reason: Protocol Last Admin: 08/03/16 06:27 Dose: Not Given Losartan Potassium (Cozaar -) 50 mg PO DAILY [facility] Last Admin: 08/02/16 09:25 Dose: 50 mg Nicotine (Nicoderm Patch -) 14 mg TD DAILY [facility] Last Admin: 08/02/16 09:24 Dose: 14 mg - Objective Vital Signs: Vital Signs Temperature 98.7 F 08/03/16 06:00 Pulse Rate 102 H 08/03/16 06:00 Respiratory Rate 20 08/03/16 06:00 Blood Pressure 136/71 08/03/16 06:00 O2 Sat by Pulse Oximetry (%) 97 08/02/16 21:00 Constitutional: Yes: Well Nourished, No Distress, Calm Eyes: Yes: WNL, Conjunctiva Clear HENT: Yes: WNL, Atraumatic, Normocephalic Neck: Yes: WNL, Supple, Trachea Midline Cardiovascular: Yes: WNL, Regular Rate and Rhythm Respiratory: Yes: Diminished (left middle lung field) Gastrointestinal: Yes: WNL, Normal Bowel Sounds Musculoskeletal: Yes: WNL Extremities: Yes: WNL Edema: No Integumentary: Yes: WNL Neurological: Yes: WNL, Alert, Oriented ...Motor Strength: WNL Psychiatric: Yes: WNL Labs: CBC, BMP 08/02/16 06:10 08/02/16 06:10 INR, PTT INR 1.31 (0.82-1.09) H 08/01/16 00:40 Impression/Plan Impression/Plan: 66 year old man with Diabetes Mellitus, Hypertension admitted for community acquired pneumonia -presented with MADALYN consolidation with productive cough and elevated WBC -cont ceftriaxone/azithromycin -follow up cultures -CT chest shows mass with post obstructive pneumonia -pulmonary consult appreciated; for broch with biopsy Visit type - Emergency Visit Emergency Visit: Yes ED Registration Date: 08/01/16 Care time: The patient presented to the Emergency Department on the above date and was hospitalized for further evaluation of their emergent condition. - New Patient This patient is new to me today: No - Critical Care Critical Care patient: No
[2016-08-03] MEDS ORDERED: PT OWN MED DRAWER 7, Y5N ONE (09:29)
[2016-08-03] MEDS: AZITHROMYCIN IVPB 500 MG/250 ML D5W PRE-DOCKED IVPB SCH (09:42)
[2016-08-03] MEDS: NICOTINE 14 MG/24 HOURS TOPICAL PATCH TD SCH (09:42)
[2016-08-03] MEDS: cefTRIAXone 1 GM/50 ML BAG (PRE-DOCKED) IVPB SCH (09:42)
[2016-08-03] MEDS: LOSARTAN POTASSIUM 50 MG TABLET (FP) PO SCH (09:42)
[2016-08-03] MEDS: guaiFENesin/CODEINE 10 ML UNIT-DOSE CUPS PO PRN (09:42)
--- NOTE | 2016-08-03 12:34 | PN ---
Progress Note (short form) - Note Progress Note: PULMONARY Still some hemoptysis. No fevers or chills. No chest pain. Last Vital Signs Temp Pulse Resp BP Pulse Ox 98.2 F 102 H 20 150/87 97 08/03/16 10:00 08/03/16 10:00 08/03/16 10:00 08/03/16 10:00 08/02/16 21:00 Gen: NAD at rest Heart: RRR Lung: decreased breath sounds bases Abd: soft, nontender Ext: no edema CBC, BMP 08/02/16 06:10 08/02/16 06:10 Active Medications Acetaminophen (Tylenol -) 650 mg PO Q6H PRN PRN Reason: FEVER OR PAIN Albuterol Sulfate (Ventolin 0.083% Nebulizer Soln -) 1 amp NEB Q4H PRN PRN Reason: SHORT OF BREATH/WHEEZING Albuterol/Ipratropium (Duoneb -) 1 amp NEB QIDR [facility] Last Admin: 08/03/16 11:10 Dose: 1 amp Atorvastatin Calcium (Lipitor -) 20 mg PO HS [facility] Last Admin: 08/02/16 21:42 Dose: 20 mg Azithromycin (Zithromax 500mg Ivpb (Pre-Docked)) 500 mg IVPB DAILY [facility] Last Admin: 08/03/16 09:42 Dose: 500 mg Ceftriaxone Sodium (Rocephin 1gm Ivpb (Pre-Docked)) 1 gm IVPB DAILY [facility] Last Admin: 08/03/16 09:42 Dose: 1 gm Guaifenesin/Codeine Phosphate (Robitussin Ac -) 10 ml PO Q8H PRN PRN Reason: COUGH Last Admin: 08/03/16 09:42 Dose: 10 ml Insulin Aspart (Novolog Vial Sliding Scale -) 1 vial SQ ACHS YARED PRN Reason: Protocol Last Admin: 08/03/16 11:57 Dose: 2 units Losartan Potassium (Cozaar -) 50 mg PO DAILY [facility] Last Admin: 08/03/16 09:42 Dose: 50 mg Nicotine (Nicoderm Patch -) 14 mg TD DAILY [facility] Last Admin: 08/03/16 09:42 Dose: 14 mg A/P Pneumonia r/o Lung Mass with postobstructive pneumonia Long time Smoker HTN DM Hyperlipidemia - continue antibiotics - NPO after midnight - will plan for bronchoscopy but unable to schedule at this time, will likely be add on case 08/04 pending OR availability - DVT prophylaxis Problem List - Problems (1) Pneumonia involving left lung Code(s): J18.9 - PNEUMONIA, UNSPECIFIED ORGANISM Qualifiers: Pneumonia type: due to unspecified organism Lung location: upper lobe of lung Qualified Code(s): J18.1 - Lobar pneumonia, unspecified organism (2) Mass of upper lobe of left lung Code(s): R91.8 - OTHER NONSPECIFIC ABNORMAL FINDING OF LUNG FIELD (3) Hyperlipidemia Code(s): E78.5 - HYPERLIPIDEMIA, UNSPECIFIED (4) Hypertension Code(s): I10 - ESSENTIAL (PRIMARY) HYPERTENSION (5) Diabetes Code(s): E11.9 - TYPE 2 DIABETES MELLITUS WITHOUT COMPLICATIONS Qualifiers: Diabetes mellitus type: type 2 (6) Tobacco abuse Code(s): Z72.0 - TOBACCO USE
[2016-08-03] MEDS: ATORVASTATIN CA 20 MG TABLET (FP) PO SCH (22:20)
[2016-08-04] MEDS: INSULIN SLIDING SCALE (NOVOLOG) 1 VIAL SQ SCH ×2 (06:03→11:28)
[2016-08-04] MEDS: ALBUTEROL SO4 2.5/IPRATROPIUM 0.5 INH SOL 3 ML VIAL.NEB. NEB SCH ×3 (06:46→12:20)
[2016-08-04] MEDS ORDERED: INSULIN (NOVOLOG) ASPART 100 UNITS/ML 10ML VIAL ONE (07:53)
[2016-08-04] MEDS: cefTRIAXone 1 GM/50 ML BAG (PRE-DOCKED) IVPB SCH (10:05)
[2016-08-04] MEDS: NICOTINE 14 MG/24 HOURS TOPICAL PATCH TD SCH (10:06)
[2016-08-04] MEDS: LOSARTAN POTASSIUM 50 MG TABLET (FP) PO SCH (10:06)
[2016-08-04] MEDS: AZITHROMYCIN IVPB 500 MG/250 ML D5W PRE-DOCKED IVPB SCH (10:08)
--- NOTE | 2016-08-04 10:12 | PN ---
Physical Exam: SUBJECTIVE: Patient seen and examined, c/o of anterior wall rib pain that radiates to back. Admits to "soreness" of the area. Still with congestive cough and white/yellow sputum production. Afebrile. OBJECTIVE: Vital Signs Period Temp Pulse Resp BP Sys/Avalos Pulse Ox Last 24 Hr 98.6 F-98.9 F 96-105 20-20 142-158/82-92 94 GENERAL: The patient is awake, alert, and fully oriented, in no acute distress. HEAD: Normal with no signs of trauma. NECK: Trachea midline, full range of motion, supple. LUNGS: decreased Breath sounds equal, +wheezes R upper and middle lobe, no crackles, no accessory muscle use. HEART: tachycardia and rhythm, S1, S2 without murmur, rub or gallop. ABDOMEN: Soft, nontender, nondistended, normoactive bowel sounds, no guarding, no rebound, no hepatosplenomegaly, no masses. EXTREMITIES: 2+ pulses, warm, well-perfused, no edema. NEUROLOGICAL: Cranial nerves II through XII grossly intact. Normal speech, gait not observed. PSYCH: Normal mood, normal affect. SKIN: Warm, dry, normal turgor, no rashes or lesions noted Laboratory Results - last 24 hr 08/03/16 08/03/16 08/03/16 11:51 17:03 20:58 POC Glucometer 211 197 251 08/04/16 05:35 POC Glucometer 155 Active Medications Generic Name Dose Route Start Last Admin Trade Name Freq PRN Reason Stop Dose Admin Acetaminophen 650 mg 08/03/16 09:10 Tylenol - PO Q6H PRN FEVER OR PAIN Albuterol Sulfate 1 amp 08/02/16 04:35 Ventolin 0.083% Nebulizer Soln - NEB Q4H PRN SHORT OF BREATH/WHEEZING Albuterol/Ipratropium 1 amp 08/01/16 06:00 08/04/16 06:46 Duoneb - NEB 1 amp QIDR YARED Administration Atorvastatin Calcium 20 mg 08/01/16 22:00 08/03/16 22:20 Lipitor - PO 20 mg HS YARED Administration Azithromycin 500 mg 08/01/16 10:00 08/03/16 09:42 Zithromax 500mg Ivpb (Pre-Docked) IVPB 500 mg DAILY YARED Administration Ceftriaxone Sodium 1 gm 08/01/16 10:00 08/03/16 09:42 Rocephin 1gm Ivpb (Pre-Docked) IVPB 1 gm DAILY YARED Administration Guaifenesin/Codeine Phosphate 10 ml 08/02/16 11:19 08/03/16 09:42 Robitussin Ac - PO 10 ml Q8H PRN Administration COUGH Insulin Aspart 1 vial 08/01/16 07:00 08/04/16 06:03 Novolog Vial Sliding Scale - SQ Not Given ACHS YARED Protocol Losartan Potassium 50 mg 08/01/16 10:00 08/03/16 09:42 Cozaar - PO 50 mg DAILY YARED Administration Nicotine 14 mg 08/01/16 10:00 08/03/16 09:42 Nicoderm Patch - TD 14 mg DAILY YARED Administration ASSESSMENT/PLAN: This is a a 66 year old male with a PMHx of Diabetes Mellitus II, Hypertension, Hyperlipidemia, Renal calculi, PPD positive in 1979 ( 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 Does admit to some weight loss. 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 CXR showing large left sided infiltrate. admitted for pneumonia, r/o underlying lung mass. 1. Community acquired pneumonia; r/o lung mass -leuckocytosis; CXR MADALYN consolidation -CT chest shows mass with post obstructive pneumonia -f/u blood cultures neg -IV ceftriaxone; IV azithromycin -duoneb 1 AMP QIDR -Bronchoscopy today -pulm consult 2. Hypertension: -losartan 50mg po daily 3. Diabetes mellitus II: -insulin SS ACHS -BGM 4. Hyperlipidemia: -lipitor 20mg po HS FEN: Fluid:po Electrolytes: wnl Diet: low sodium VTE: prophylaxis: lovenox Disposition: IV antibiotic/pending bronch Problem List - Problems (1) Pneumonia involving left lung Code(s): J18.9 - PNEUMONIA, UNSPECIFIED ORGANISM Qualifiers: Pneumonia type: due to unspecified organism Lung location: upper lobe of lung Qualified Code(s): J18.1 - Lobar pneumonia, unspecified organism (2) Diabetes Code(s): E11.9 - TYPE 2 DIABETES MELLITUS WITHOUT COMPLICATIONS Qualifiers: Diabetes mellitus type: type 2 (3) Hypertension Code(s): I10 - ESSENTIAL (PRIMARY) HYPERTENSION (4) Hyperlipidemia Code(s): E78.5 - HYPERLIPIDEMIA, UNSPECIFIED (5) Tobacco abuse Code(s): Z72.0 - TOBACCO USE Visit type - Emergency Visit Emergency Visit: Yes ED Registration Date: 08/01/16 Care time: The patient presented to the Emergency Department on the above date and was hospitalized for further evaluation of their emergent condition. - New Patient This patient is new to me today: No - Critical Care Critical Care patient: No
--- NOTE | 2016-08-04 10:42 | PN ---
Progress Note, Physician - Current Medication List Current Medications: Active Medications Acetaminophen (Tylenol -) 650 mg PO Q6H PRN PRN Reason: FEVER OR PAIN Albuterol Sulfate (Ventolin 0.083% Nebulizer Soln -) 1 amp NEB Q4H PRN PRN Reason: SHORT OF BREATH/WHEEZING Albuterol/Ipratropium (Duoneb -) 1 amp NEB QIDR [facility] Last Admin: 08/04/16 06:46 Dose: 1 amp Atorvastatin Calcium (Lipitor -) 20 mg PO HS [facility] Last Admin: 08/03/16 22:20 Dose: 20 mg Azithromycin (Zithromax 500mg Ivpb (Pre-Docked)) 500 mg IVPB DAILY [facility] Last Admin: 08/04/16 10:08 Dose: 500 mg Ceftriaxone Sodium (Rocephin 1gm Ivpb (Pre-Docked)) 1 gm IVPB DAILY [facility] Last Admin: 08/04/16 10:05 Dose: 1 gm Guaifenesin/Codeine Phosphate (Robitussin Ac -) 10 ml PO Q8H PRN PRN Reason: COUGH Last Admin: 08/03/16 09:42 Dose: 10 ml Insulin Aspart (Novolog Vial Sliding Scale -) 1 vial SQ ACHS [facility] PRN Reason: Protocol Last Admin: 08/04/16 06:03 Dose: Not Given Losartan Potassium (Cozaar -) 50 mg PO DAILY [facility] Last Admin: 08/04/16 10:06 Dose: 50 mg Nicotine (Nicoderm Patch -) 14 mg TD DAILY [facility] Last Admin: 08/04/16 10:06 Dose: 14 mg - Objective Vital Signs: Vital Signs Temperature 98.6 F 08/04/16 06:00 Pulse Rate 105 H 08/04/16 06:00 Respiratory Rate 20 08/04/16 06:00 Blood Pressure 158/89 08/04/16 06:00 O2 Sat by Pulse Oximetry (%) 94 L 08/03/16 21:00 Constitutional: Yes: Well Nourished, No Distress, Calm Eyes: Yes: WNL, Conjunctiva Clear HENT: Yes: WNL, Atraumatic, Normocephalic Neck: Yes: WNL, Supple, Trachea Midline Cardiovascular: Yes: WNL, Regular Rate and Rhythm Respiratory: Yes: Diminished (MADALYN) Gastrointestinal: Yes: WNL, Normal Bowel Sounds Musculoskeletal: Yes: WNL Extremities: Yes: WNL Edema: No Integumentary: Yes: WNL Neurological: Yes: WNL, Alert, Oriented ...Motor Strength: WNL Psychiatric: Yes: WNL Labs: CBC, BMP 08/02/16 06:10 08/02/16 06:10 INR, PTT INR 1.31 (0.82-1.09) H 08/01/16 00:40 Impression/Plan Impression/Plan: 66 year old man with Diabetes Mellitus, Hypertension admitted for community acquired pneumonia -presented with MADALYN consolidation with productive cough and elevated WBC -cont ceftriaxone/azithromycin -follow up cultures -CT chest shows mass with post obstructive pneumonia -pulmonary consult appreciated; for broch with biopsy Visit type - Emergency Visit Emergency Visit: Yes ED Registration Date: 08/01/16 Care time: The patient presented to the Emergency Department on the above date and was hospitalized for further evaluation of their emergent condition. - New Patient This patient is new to me today: No - Critical Care Critical Care patient: No
[2016-08-04] MEDS ORDERED: MIDAZOLAM HCL 2 MG/2 ML SINGLE DOSE VIAL ONE ×2 (13:24→13:44)
[2016-08-04] MEDS ORDERED: PROPOFOL 20 ML ONE (13:24)
[2016-08-04] MEDS ORDERED: LIDOCAINE HCL/PF 2% SDV 5ML VIAL ONE (13:26)
[2016-08-04] MEDS ORDERED: PHENYLEPHRINE HCL 10 MG/1 ML SINGLE DOSE VIAL ONE (14:15)
--- NOTE | 2016-08-04 14:50 | PROC ---
Procedure Note Procedure: BRONCHOSCOPY NOTE After discussing the risks and benefits of the procedure including bleeding and pneumothorax, informed consent was obtained. Pt was placed under general anesthesia and intubated with size 8.0 ETT by anesthesia. Optherion video bronchoscope was passed via the ETT and the airways were examined down to the subsegmental level. The robles was widened, no endobronchial lesions noted in the right lung. In the left upper lobe, there were numerous endobronchial lesions that were vascular, friable and an obstructing mass distal to the lesions. Multiple biopsies were taken from the area and lavaged with saline. Area visualized until hemostasis achieved. Bronchoscope then withdrawn and procedure terminated. No immediate complications. Pre-op Dx: r/o lung mass Post-op Dx: r/o lung cancer Plan: - f/u cytology, pathology and cultures - pt to make an appointment to see me on 08/08 as outpt for results Ed Syed MD
[2016-08-04] MEDS ORDERED: LABETALOL HCL 5 MG/1 ML (100MG/20 ML VIAL) ONE (14:51)
[2016-08-04] MEDS ORDERED: ONDANSETRON 4 MG/2 ML VIAL IVPUSH PRN ×2 (15:07→16:06)
[2016-08-04] MEDS ORDERED: LACTATED RINGERS SOLUTION 1,000 ML IV SCH ×2 (15:15→16:06)
[2016-08-04 16:03] VITALS: BP 124/67
[2016-08-04 16:04] VITALS: PULSE 80; TEMP 98
[2016-08-04] MEDS ORDERED: ACETAMINOPHEN 325 MG TABLET (FP) PO PRN (16:06)
[2016-08-04] MEDS ORDERED: guaiFENesin/CODEINE 10 ML UNIT-DOSE CUPS PO PRN (16:06)
[2016-08-04] MEDS ORDERED: ALBUTEROL SO4 0.083% IH SOL 2.5 MG/3 ML VIAL.NEB. NEB PRN (16:06)
[2016-08-04] MEDS ORDERED: INSULIN SLIDING SCALE (NOVOLOG) 1 VIAL SQ SCH (16:30)
--- NOTE | 2016-08-04 17:40 | DS ---
Physical Exam: SUBJECTIVE: Patient seen and examined denies fever, chills. Still with cough, denies blood tinged sputum at this time. OBJECTIVE: Vital Signs Period Temp Pulse Resp BP Sys/Avalos Pulse Ox Last 24 Hr 97.2 F-98.9 F 80-105 16-20 124-158/67-92 94-97 PHYSICAL EXAM GENERAL: The patient is awake, alert, and fully oriented, in no acute distress. HEAD: Normal with no signs of trauma. EYES: PERRL, extraocular movements intact, sclera anicteric, conjunctiva clear. ENT: Ears normal, nares patent, oropharynx clear without exudates, moist mucous membranes. NECK: Trachea midline, full range of motion, supple. LUNGS: decreased breath sounds b/l, right upper lobe wheezes, no crackles, no accessory muscle use. HEART: Regular rate and rhythm, S1, S2 without murmur, rub or gallop. ABDOMEN: Soft, nontender, nondistended, normoactive bowel sounds, no guarding, no rebound, no hepatosplenomegaly, no masses. EXTREMITIES: 2+ pulses, warm, well-perfused, no edema. NEUROLOGICAL: Cranial nerves II through XII grossly intact. Normal speech, gait not observed. PSYCH: Normal mood, normal affect. SKIN: Warm, dry, normal turgor, no rashes or lesions noted. 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 Does admit to some weight loss. 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 On admission afebrile, with leukocytosis. CXR showing large left sided infiltrate. Admitted for community acquired pneumonia. Chest CT chest showing mass with post obstructive pneumonia. Patient was started on IV ceftriaxone and azithromycin. Complete ten day course with po Augmentin to complete ten days. Micro reports negative. Pulmonary was consulted, patient underwent bronchoscopy. Biopsies taken and sent for pathology. Patient is to follow up with Dr. Syed on Thursday08/08/16. Hypertension controlled, with home mediation. Diabetes controlled with insulin sliding scale. Minutes to complete discharge: 35 Discharge Summary Reason For Visit: PENUMONIA INVOLVING LFT LUNG Current Active Problems Mass of upper lobe of left lung (Acute) Pneumonia involving left lung (Acute) Tobacco abuse (Acute) Hyperlipidemia (Chronic) Hypertension (Chronic) Condition: Fair - Instructions Diet, Activity, Other Instructions: Mr Nicolas, you have been evaluated for your recent cough and symptoms. We would like you to continue taking antibiotics for pneumonia to complete your ten day course. We would also like you to follow up with project crew worker, Dr. Syed for results of your bronchoscopy. If you experience any worsening of symptoms including chest pain and shortness of breath, please return to the emergency room. Referrals: Milady Apple MD [Primary Care Provider] - Ed Syed MD, MD [Staff Physician] - Disposition: HOME - Home Medications Comprehensive Discharge Medication List: Ambulatory Orders Atorvastatin Ca [Lipitor] 20 mg PO HS #30 tablet 12/27/14 Metformin HCl 500 mg PO BID #60 tablet 12/27/14 Losartan Potassium 50 mg PO ASDIR 07/31/16 Sitagliptin Phosphate [Januvia -] 100 mg PO ONCE 07/31/16 Albuterol 0.083% Nebulizer Cheyanne [Ventolin 0.083% Nebulizer Soln -] 1 neb NEB Q4H PRN #1 vial 08/04/16 Amoxicillin/Potassium Clav [Augmentin 875-125 Tablet] 1 each PO DAILY #6 tablet 08/04/16 Nicotine Patch [Nicoderm Patch -] 14 mg TD DAILY #7 patch 08/04/16 Problem List - Problems (1) Pneumonia involving left lung Code(s): J18.9 - PNEUMONIA, UNSPECIFIED ORGANISM Qualifiers: Pneumonia type: due to unspecified organism Lung location: upper lobe of lung Qualified Code(s): J18.1 - Lobar pneumonia, unspecified organism (2) Diabetes Code(s): E11.9 - TYPE 2 DIABETES MELLITUS WITHOUT COMPLICATIONS Qualifiers: Diabetes mellitus type: type 2 (3) Hypertension Code(s): I10 - ESSENTIAL (PRIMARY) HYPERTENSION (4) Hyperlipidemia Code(s): E78.5 - HYPERLIPIDEMIA, UNSPECIFIED (5) Tobacco abuse Code(s): Z72.0 - TOBACCO USE This patient is new to me today: No Emergency Visit: Yes ED Registration Date: 08/01/16 Care time: The patient presented to the Emergency Department on the above date and was hospitalized for further evaluation of their emergent condition. Critical Care patient: No - Discharge Referral Referred to [facility] No
[2016-08-04] MEDS ORDERED: ALBUTEROL SO4 2.5/IPRATROPIUM 0.5 INH SOL 3 ML VIAL.NEB. NEB SCH (18:00)
[2016-08-04] MEDS ORDERED: ATORVASTATIN CA 20 MG TABLET (FP) PO SCH (22:00)
[2016-08-05] MEDS ORDERED: cefTRIAXone 1 GM/50 ML BAG (PRE-DOCKED) IVPB SCH (10:00)
[2016-08-05] MEDS ORDERED: LOSARTAN POTASSIUM 50 MG TABLET (FP) PO SCH (10:00)
[2016-08-05] MEDS ORDERED: NICOTINE 14 MG/24 HOURS TOPICAL PATCH TD SCH (10:00)
--- NOTE | 2016-08-07 16:54 | PATH ---
Cytology Non-Gynecological Report Patient Name: JOSÉ CABRALES [facility]. Rec. #: [id number] /Age/Gender: 1950 (Age: 66) / M Account: [id number] Location: [address] [place] [address]/[facility] Taken: 08/04/2016 Received: 08/05/2016 Reported: 08/07/2016 Physicians: Humera Abreu Specimen(s) Received BRONCHIAL WASHINGS LEFT UPPER LOBE Clinical History Pneumonia/left upper lobe mass Final Diagnosis LUNG, LEFT UPPER LOBE, BRONCHIAL WASHINGS: SATISFACTORY FOR EVALUATION. SCATTERED MARKEDLY ATYPICAL CELLS PRESENT (SEE COMMENT). BACKGROUND REACTIVE BRONCHIAL AND SQUAMOUS CELLS. Comment: Concurrent bronchoscopic biopsy showed high-grade neuroendocrine carcinoma, favor large cell neuroendocrine carcinoma (refer to [id number] for the biopsy and immunohistochemical stains results). Electronically Signed Eric Hamilton M.D. Gross Description Received is 50 cc of bloody fluid in 50% percent alcohol. One cytofunnel slide and one cell block are made.
--- NOTE | 2016-08-07 16:59 | PATH ---
Surgical Pathology Report Patient Name: JOSÉ CABRALES [facility]. Rec. #: [id number] /Age/Gender: 1950 (Age: 66) / M Account: [id number] Location: [address] [place] [address]/[facility] Taken: 08/04/2016 Received: 08/05/2016 Reported: 08/07/2016 Physicians: Humera Abreu M.D. Specimen(s) Received LUNG BIOPSIES LEFT UPPER LOBE MASS Clinical History Pneumonia involving left lung Left upper lobe mass Final Diagnosis LUNG, LEFT UPPER LOBE, MASS, BRONCHOSCOPIC BIOPSY: HIGH-GRADE NEUROENDOCRINE CARCINOMA, FAVOR LARGE CELL NEUROENDOCRINE CARCINOMA (SEE COMMENT). Comment: Immunohistochemical stains performed and interpreted at [facility] show the following: the tumor cells are positive for Synaptophysin immunostain, and focally weakly positive for Ae1/Ae3; the tumor cells are negative for CK7, CK20, TTF1, and Chromogranin immunostains. Additional immunohistochemical stains performed at [place], [place] ([id number]) and interpreted at [facility] show the tumor cells are negative for CD56 and CAM5.2 immunostains; Ki67 proliferation index is ~60%. The morphologic findings and the immunoprofile are consistent with high-grade neuroendocrine carcinoma, favoring large cell neuroendocrine carcinoma. The case was discussed with Dr. Syed on 08/07/16. Electronically Signed Eric Hamilton M.D. Addendum Reported: 08/14/2016 Addendum Diagnosis PD-L1 (KEYTRUDA) PERFORMED AND INTERPRETED AT [facility] [place] (SPECIMEN #[id number]) SHOWED THE FOLLOWING: PD-L1 (KEYTRUDA, Clone 22C3 pharmDx) TUMOR PROPORTION SCORE: 5-10%. INTERPRETATION: LOW EXPRESSION Reference Range: TPS = Tumor Proportion Score = % of at least 100 viable tumor cells showing complete or partial membrane staining at > 1+. TPS < 1% = No expression. TPS 149% = Low Expression. Eligible for second-line treatment with KEYTRUDA (pembrolizumab). TPS =50% = High Expression. Eligible for first or second-line treatment with KEYTRUDA (pembrolizumab). The PD-L1, 22C3 pharmDx is FDA approved for use in the detection of PD-L1 in ormalin fixed paraffin embedded non-small cell lung carcinoma using the [employer] 48 platform. The assay is indicated as an aid in identifying NSCLC patients for ttreatment with keytruda (pembrolizumab). Eric Hamilton M.D. Addendum Reported: 08/21/2016 Addendum Diagnosis LUNG FISH PANEL PERFORMED AND INTERPRETED AT [place], [place] ([id number]) IS FOLLOWS: INTERPRETATION: No evidence of MET(7q31) amplification No evidence of a rearrangement of ALK (2p23). No evidence of a rearrangement of ROS1(6q22). No evidence of a rearrangement of RET(10q11). Comments: Three to six copies of ALK (2p23) are seen in 34% of cells. One to four copies of ROS1(6q22). One to four copies of RET(10q11) are seen in 30% of cells. Eric Hamilton M.D. Addendum Reported: 08/21/2016 Addendum Diagnosis EGFR MUTATION ANALYSIS PERFORMED AND INTERPRETED AT [place], [place] ([id number]) SHOWED THE FOLLOWING: Results: No mutation detected. Interpretation: No mutations were identified in the sample. Fewer than 5% of non-small cell lung carcinoma patients without identifiable mutations are reported to be responsive to EGFR tyrosine kinase inhibitor therapies. Eric Hamilton M.D. Gross Description Received in formalin labeled "biopsies left upper lobe mass" is a 0.7 x 0.6 x 0.2 cm aggregate of pa soft tissue fragments. The formalin is filtered and the specimen is entirely submitted in one cassette. 08/05/201608/05/2016
== END 2016-08-04 18:15 | disposition home or self-care (01) | DRG 195 ==
LOC: JERFT 20:44 → JERBED 08-01 02:04 → UNDOADMOB 08-01 02:13 → J5S 08-01 04:35 → OBSVTOIN 08-01 18:15
PROVIDERS: ADMIT Internal Medicine; ATTEND Internal Medicine
PROC: 0BB88ZX Excision of Left Upper Lobe Bronchus, Via Natural or Artificial Opening Endoscopic, Diagnostic (ICD-10-PCS; principal; 2016-08-01)
PROC: 0B988ZX Drainage of Left Upper Lobe Bronchus, Via Natural or Artificial Opening Endoscopic, Diagnostic (ICD-10-PCS; 2016-08-01)
DX: J18.9 Pneumonia, unspecified organism (principal); R91.8 Other nonspecific abnormal finding of lung field; I10 Essential (primary) hypertension; E11.9 Type 2 diabetes mellitus without complications; E78.5 Hyperlipidemia, unspecified; N20.0 Calculus of kidney; F17.210 Nicotine dependence, cigarettes, uncomplicated
CPT/HCPCS: 36415; 71020-TC; 71260-TC; 80048; 80053; 80061; 81003; 81015; 82550; 83036; 83605; 83721; 84484; 85025; 85610; 85730; 86850; 86900; 86901; 87040; 87070; 87102; 87116; 87205; 87206; 87210; 87254; 87804; 88108; 88305-TC; 88341-TC; 93005; 93010; 94640; 94760; 99283-25; G0378